=== PATIENT | male | born 1955 | race Caucasian/White ===

== ENCOUNTER 2021-07-19 10:08 | Day surgery (SDC) | payer OTHER ==
[2021-07-08 16:06] LABS: BASOPHILS # (AUTO) 0.1 X10'3 (0-0.2); BASOPHILS % (AUTO) 0.9 % (0-1); EOSINOPHILS # (AUTO) 0.3 X10'3 (0-0.9); EOSINOPHILS % (AUTO) 3.7 % (0-6); HEMATOCRIT 44.2 % (42.0-52.0); HEMOGLOBIN 15.1 g/dl (14.0-17.9); LYMPHOCYTES # (AUTO) 2.9 X10'3 (1.1-4.8); LYMPHOCYTES % (AUTO) 35.4 % (21-51); MEAN CORPUSCULAR HEMOGLOBIN 31.8 PG (27.0-31.0); MEAN CORPUSCULAR HGB CONC 34.2 g/dL (33.0-36.5); MEAN CORPUSCULAR VOLUME 92.9 FL (78-98); MEAN PLATELET VOLUME 8.4 FL (7.4-10.4); MONOCYTES # (AUTO) 0.7 X10'3 (0-0.9); NEUTROPHILS # (AUTO) 4.1 X10'3 (1.8-7.7); PLATELET COUNT 171 X10'3 (140-440); RED BLOOD COUNT 4.76 X10'6 (4.70-6.10); RED CELL DISTRIBUTION WIDTH 13.4 % (11.5-14.5); WHITE BLOOD COUNT 8.1 X10'3 (4.5-11.0)
[2021-07-08 16:15] LABS: ALBUMIN 3.7 G/DL (3.4-5.0); ANION GAP 8 (8-16); BLOOD UREA NITROGEN 28 MG/DL (7-18); BUN/CREATININE RATIO 25.7 (5.4-32.0); CALCIUM 8.7 MG/DL (8.5-10.1); CHLORIDE 103 MMOL/L (99-107); CREATININE 1.09 MG/DL (0.60-1.10); GLUCOSE 117 MG/DL (70-104); POTASSIUM 4.3 MMOL/L (3.5-5.1); SODIUM 140 MMOL/L (135-145); TOTAL CARBON DIOXIDE 29.2 MMOL/L (24-32); eGFR 68 ML/MIN
[2021-07-08 16:19] LABS: APTT 29 SECONDS (22-32)
[2021-07-19] VITALS (9 sets, daily range): BP systolic 90–117; BP diastolic 47–73
[~2021-07-19] VITALS: Ht 180.3 cm; Wt 151.5 kg
[2021-07-19] MEDS ORDERED: FURO40TA4 PO (10:31)
[2021-07-19] MEDS ORDERED: AMIO400T5 PO (10:31)
[2021-07-19] MEDS ORDERED: coQ10 PO (10:31)
[2021-07-19] MEDS ORDERED: LACT1CAP65 PO (10:31)
[2021-07-19] MEDS ORDERED: APIX5TAB3 PO (10:31)
[2021-07-19] MEDS ORDERED: POTA-207 PO (10:31)
[2021-07-19] MEDS ORDERED: GLUC100017 PO (10:31)
[2021-07-19] MEDS ORDERED: ATOR40TA72 PO (10:31)
[2021-07-19] MEDS ORDERED: TERA1CAP4 PO (10:31)
[2021-07-19] MEDS ORDERED: METO200T49 PO (10:31)
[2021-07-19] MEDS ORDERED: fentaNYL/PF 50MCG/1 ML 2ML syringe IV ONE (10:40)
[2021-07-19] MEDS ORDERED: MIDAZolam 1mg/ml 10ml vial IV ONE (10:40)
[2021-07-19] MEDS ORDERED: normal saline 1000ml 1,000 ML IV SCH (10:40)
== END 2021-07-19 14:47 | disposition home or self-care (01) ==
LOC: SSTAY O 10:08
PROVIDERS: ATTEND Internal Medicine Interventional Cardiology
DX: I48.91 Unspecified atrial fibrillation (principal); E11.9 Type 2 diabetes mellitus without complications; G47.33 Obstructive sleep apnea (adult) (pediatric); I42.9 Cardiomyopathy, unspecified; I50.9 Heart failure, unspecified; Z79.01 Long term (current) use of anticoagulants; Z79.899 Other long term (current) drug therapy; Z88.5 Allergy status to narcotic agent
CPT/HCPCS: 36415; 80048; 85025; 85610; 85730; 92960; 93005; 94760; 94799; J2250; J3010; J7030

== ENCOUNTER 2021-08-09 20:31 | Inpatient (IN) | payer OTHER ==
[~2021-08-09] VITALS: Ht 180.3 cm; Wt 147.7 kg
[~2021-08-09 20:31] MED LIST: AMIO400T5 PO; APIX5TAB3 PO; ATOR40TA72 PO; FURO40TA4 PO; GLUC100017 PO; LACT1CAP65 PO; METO200T49 PO; POTA-207 PO; TERA1CAP4 PO; coQ10 PO
[2021-08-09] MEDS ORDERED: acetaminophen 325mg tablet PO STA (21:24)
[2021-08-09] MEDS ORDERED: CefTRIAXone 2gm/D5W 50ml BAG 50 ML IV ONE (21:25)
[2021-08-09 21:57] LABS: BASOPHILS # (AUTO) 0.1 X10'3 (0-0.2); BASOPHILS % (AUTO) 0.6 % (0-1); EOSINOPHILS # (AUTO) 0.1 X10'3 (0-0.9); EOSINOPHILS % (AUTO) 0.5 % (0-6); HEMATOCRIT 43.6 % (42.0-52.0); HEMOGLOBIN 14.6 g/dl (14.0-17.9); LYMPHOCYTES # (AUTO) 1.4 X10'3 (1.1-4.8); LYMPHOCYTES % (AUTO) 8.7 % (21-51); MEAN CORPUSCULAR HEMOGLOBIN 31.1 PG (27.0-31.0); MEAN CORPUSCULAR HGB CONC 33.5 g/dL (33.0-36.5); MEAN PLATELET VOLUME 8.4 FL (7.4-10.4); MONOCYTES # (AUTO) 1.3 X10'3 (0-0.9); MONOCYTES % (AUTO) 8.1 % (2-12); NEUTROPHILS # (AUTO) 12.9 X10'3 (1.8-7.7); NEUTROPHILS % (AUTO) 82.1 % (42-75); PLATELET COUNT 157 X10'3 (140-440); RED BLOOD COUNT 4.69 X10'6 (4.70-6.10); RED CELL DISTRIBUTION WIDTH 14.3 % (11.5-14.5); WHITE BLOOD COUNT 15.7 X10'3 (4.5-11.0)
[2021-08-09 22:15] LABS: ALANINE AMINOTRANSFERASE 41 U/L (12-78); ALBUMIN 3.7 G/DL (3.4-5.0); ALKALINE PHOSPHATASE 88 IU/L (46-116); ANION GAP 7 (8-16); ASPARTATE AMINO TRANSFERASE 19 U/L (10-37); BILIRUBIN,TOTAL 1.3 MG/DL (0.1-1.0); BLOOD UREA NITROGEN 18 MG/DL (7-18); BUN/CREATININE RATIO 14.3 (5.4-32.0); CALCIUM 8.7 MG/DL (8.5-10.1); CHLORIDE 105 MMOL/L (99-107); CREATININE 1.26 MG/DL (0.60-1.10); GLUCOSE 135 MG/DL (70-104); SODIUM 140 MMOL/L (135-145); TOTAL CARBON DIOXIDE 27.7 MMOL/L (24-32); TOTAL PROTEIN 7.5 G/DL (6.4-8.2); eGFR 58 ML/MIN
[2021-08-09] MEDS ORDERED: magnesium 2GM in 50ml NS 50 ML IV PRN (23:35)
[2021-08-09] MEDS ORDERED: magnesium Cl slow-release 64mg tablet PO PRN (23:35)
[2021-08-09] MEDS ORDERED: normal saline 1000ml 1,000 ML IV SCH (23:35)
[2021-08-09] MEDS ORDERED: potassium CL 10mEq/100ml bag 100 ML IV PRN (23:35)
[2021-08-09] MEDS ORDERED: ondansetron/PF 4mg/2ml inj IV PRN (23:35)
[2021-08-09] MEDS ORDERED: acetaminophen 325mg tablet PO PRN (23:35)
[2021-08-09] MEDS ORDERED: potassium Cl 20 mEq SR tablet PO PRN ×2 (23:35)
[2021-08-09] MEDS ORDERED: ondansetron 4mg rapidly disintigrating tab PO PRN (23:35)
[2021-08-09] MEDS ORDERED: magnesium 4gm in 100ml NS 100 ML IV PRN (23:35)
[2021-08-09] MEDS ORDERED: HYDROcodone/acetaminophen 5mg/325mg tablet PO PRN (23:35)
[2021-08-09] MEDS ORDERED: vancomycin/NS 1 GM ADD-VANTAGE 250 ML IV ONE (23:55)
[2021-08-10 01:04] LABS: BASOPHILS # (AUTO) 0.1 X10'3 (0-0.2); BASOPHILS % (AUTO) 0.9 % (0-1); EOSINOPHILS % (AUTO) 0.2 % (0-6); HEMATOCRIT 40.8 % (42.0-52.0); HEMOGLOBIN 13.7 g/dl (14.0-17.9); LYMPHOCYTES # (AUTO) 1.3 X10'3 (1.1-4.8); LYMPHOCYTES % (AUTO) 8.9 % (21-51); MEAN CORPUSCULAR HGB CONC 33.6 g/dL (33.0-36.5); MEAN CORPUSCULAR VOLUME 92.2 FL (78-98); MEAN PLATELET VOLUME 8.4 FL (7.4-10.4); MONOCYTES # (AUTO) 0.9 X10'3 (0-0.9); MONOCYTES % (AUTO) 6.5 % (2-12); NEUTROPHILS # (AUTO) 11.9 X10'3 (1.8-7.7); NEUTROPHILS % (AUTO) 83.5 % (42-75); PLATELET COUNT 153 X10'3 (140-440); RED BLOOD COUNT 4.42 X10'6 (4.70-6.10); RED CELL DISTRIBUTION WIDTH 14.2 % (11.5-14.5); WHITE BLOOD COUNT 14.2 X10'3 (4.5-11.0)
[2021-08-10 01:09] LABS: CLARITY,URINE CLEAR (Clear); COLOR,URINE YELLOW (Yellow); GLUCOSE, URINE NEGATIVE (Neg); KETONES,URINE NEGATIVE (Neg); LEUKOCYTE ESTERASE ,URINE NEGATIVE (Neg); NITRITES, URINE NEGATIVE (Neg); OCCULT BLOOD,URINE TRACE-INTACT (Neg); PH,URINE 6.5 (4.8-8.0); PROTEIN,URINE 30 mg/dl (Neg)
[2021-08-10 01:14] LABS: UA COLLECTION TYPE NON-SPECIFIED
[2021-08-10 01:17] LABS: BACTERIA,URINE NONE SEEN /HPF (Neg); RBC,URINE 0-2 /HPF (0-2); SQUAMOUS EPITHELIAL CELL,UR FEW /LPF (FEW); WBC,URINE 0-4 /HPF (0-4)
[2021-08-10 01:19] LABS: ALBUMIN 3.4 G/DL (3.4-5.0); ANION GAP 8 (8-16); BLOOD UREA NITROGEN 17 MG/DL (7-18); CALCIUM 8.2 MG/DL (8.5-10.1); CHLORIDE 104 MMOL/L (99-107); CREATININE 1.21 MG/DL (0.60-1.10); GLUCOSE 128 MG/DL (70-104); MAGNESIUM 2.1 MG/DL (1.5-2.4); POTASSIUM 3.9 MMOL/L (3.5-5.1); SODIUM 141 MMOL/L (135-145); TOTAL CARBON DIOXIDE 28.8 MMOL/L (24-32); eGFR 60 ML/MIN
[2021-08-10 03:30] VITALS: BP 122/76
[2021-08-10 06:00] VITALS: BP 117/66
[2021-08-10] MEDS: VANCOMYCIN 1GM/200ML IVPB 200 ML IV SCH ×2 (07:51→19:24)
[2021-08-10] MEDS: K and/or MAG REPLACEMENT MC SCH ×2 (08:00→19:22)
[2021-08-10] MEDS ORDERED: furosemide 40mg/4ml inj IV ONE (10:20)
--- NOTE | 2021-08-10 10:24 | NUR ---
Noted pt with a BMI of 99.9 using documented wt of 325 kg though current wt isn't scaled. Pt with a documented wt of 151.5 kg at previous visit 07/19, though also not scaled. Clinical pharmacist informed of wt discrepancies in case pt is receiving wt based medications. Will continue to follow. Addendum: 08/10/21 at [address] Amended: Links added.
[2021-08-10 11:00] VITALS: BP 115/56
[2021-08-10] MEDS: amiodarone 200mg tablet PO SCH (12:18)
[2021-08-10 15:00] VITALS: BP 122/66
[2021-08-10 18:00] VITALS: BP 132/71
[2021-08-10] MEDS: furosemide 40mg/4ml inj IV SCH (19:23)
[2021-08-10] MEDS: apixaban 5mg tablet PO SCH (19:23)
[2021-08-10] MEDS ORDERED: amiodarone 200mg tablet PO SCH (20:00)
[2021-08-10] MEDS ORDERED: CefTRIAXone/D5W-Rocephin 1gm 50 ML IV SCH (21:00)
[2021-08-11 03:47] VITALS: BP 120/64
[2021-08-11] MEDS: K and/or MAG REPLACEMENT MC SCH (07:05)
[2021-08-11] MEDS ORDERED: VANCOMYCIN LEVEL IV ONE (07:30)
[2021-08-11] MEDS: apixaban 5mg tablet PO SCH (07:37)
[2021-08-11] MEDS: furosemide 40mg/4ml inj IV SCH (07:37)
[2021-08-11] MEDS: amiodarone 200mg tablet PO SCH (07:39)
[2021-08-11] MEDS ORDERED: atorvastatin 20mg tablet PO SCH (08:00)
[2021-08-11] MEDS ORDERED: non-formulary drug (Glucosamine Sulfate 2Kcl (Glucosamine) 1 TAB) PO SCH (08:00)
[2021-08-11] MEDS ORDERED: Terazosin 1mg capsule PO SCH (08:00)
[2021-08-11] MEDS ORDERED: lactobacillus rhamnosus 10,000 MMU CELLS/CAPSULE PO SCH (08:00)
[2021-08-11 08:18] LABS: BASOPHILS % (AUTO) 0.5 % (0-1); EOSINOPHILS # (AUTO) 0.2 X10'3 (0-0.9); EOSINOPHILS % (AUTO) 3.3 % (0-6); HEMATOCRIT 42.5 % (42.0-52.0); HEMOGLOBIN 14.3 g/dl (14.0-17.9); LYMPHOCYTES # (AUTO) 1.4 X10'3 (1.1-4.8); LYMPHOCYTES % (AUTO) 20.5 % (21-51); MEAN CORPUSCULAR HEMOGLOBIN 31.3 PG (27.0-31.0); MEAN CORPUSCULAR HGB CONC 33.6 g/dL (33.0-36.5); MEAN CORPUSCULAR VOLUME 93.2 FL (78-98); MEAN PLATELET VOLUME 8.7 FL (7.4-10.4); MONOCYTES # (AUTO) 0.8 X10'3 (0-0.9); MONOCYTES % (AUTO) 11.4 % (2-12); NEUTROPHILS # (AUTO) 4.4 X10'3 (1.8-7.7); NEUTROPHILS % (AUTO) 64.3 % (42-75); PLATELET COUNT 138 X10'3 (140-440); RED BLOOD COUNT 4.56 X10'6 (4.70-6.10); RED CELL DISTRIBUTION WIDTH 14.2 % (11.5-14.5); WHITE BLOOD COUNT 6.9 X10'3 (4.5-11.0)
[2021-08-11 08:34] LABS: ALBUMIN 3.1 G/DL (3.4-5.0); ANION GAP 8 (8-16); BLOOD UREA NITROGEN 16 MG/DL (7-18); BUN/CREATININE RATIO 19.8 (5.4-32.0); CALCIUM 7.7 MG/DL (8.5-10.1); CHLORIDE 104 MMOL/L (99-107); CREATININE 0.81 MG/DL (0.60-1.10); GLUCOSE 127 MG/DL (70-104); MAGNESIUM 2.2 MG/DL (1.5-2.4); POTASSIUM 3.6 MMOL/L (3.5-5.1); SODIUM 140 MMOL/L (135-145); TOTAL CARBON DIOXIDE 28.5 MMOL/L (24-32); VANCOMYCIN,TROUGH 5.1 UG/ML (6.0-14.0); eGFR > 90 ML/MIN
[2021-08-11] MEDS: VANCOMYCIN 1GM/200ML IVPB 200 ML IV SCH (08:54)
[2021-08-11] MEDS ORDERED: LEVO500T90 PO (11:18)
[2021-08-11] MEDS ORDERED: VANCOMYCIN 1GM/200ML IVPB 200 ML IV SCH (17:00)
== END 2021-08-11 12:41 | disposition home or self-care (01) | DRG 871 ==
LOC: ER 20:34 → ED HOLD 23:38 → EDBEDREQ 08-10 03:04 → PCU 3S 08-10 03:28
PROVIDERS: ADMIT Internal Medicine; ATTEND Internal Medicine
DX: A41.9 Sepsis, unspecified organism (principal); N17.0 Acute kidney failure with tubular necrosis; I48.20 Chronic atrial fibrillation, unspecified; L03.115 Cellulitis of right lower limb; E11.9 Type 2 diabetes mellitus without complications; E78.5 Hyperlipidemia, unspecified; E86.0 Dehydration; I11.0 Hypertensive heart disease with heart failure; I50.9 Heart failure, unspecified; I87.2 Venous insufficiency (chronic) (peripheral); N40.0 Benign prostatic hyperplasia without lower urinary tract symptoms; Z96.641 Presence of right artificial hip joint; Z96.653 Presence of artificial knee joint, bilateral; Z79.01 Long term (current) use of anticoagulants; Z79.899 Other long term (current) drug therapy
CPT/HCPCS: 36415; 71045; 80048; 80053; 80202; 81001; 83605; 83735; 83880; 84145; 85025; 87040; 87081; 93005; 96365; 99285; G0378; J0696; J1940; J3370; J7030

== ENCOUNTER 2022-04-11 12:10 | Day surgery (SDC) | payer OTHER ==
[2022-04-06 14:43] LABS: BASOPHILS % (AUTO) 0.4 % (0-1); EOSINOPHILS # (AUTO) 0.2 X10'3 (0-0.9); EOSINOPHILS % (AUTO) 2.3 % (0-6); HEMOGLOBIN 14.8 g/dl (14.0-17.9); LYMPHOCYTES # (AUTO) 2.6 X10'3 (1.1-4.8); LYMPHOCYTES % (AUTO) 26.2 % (21-51); MEAN CORPUSCULAR HEMOGLOBIN 32.2 PG (27.0-31.0); MEAN CORPUSCULAR HGB CONC 34.5 g/dL (33.0-36.5); MEAN CORPUSCULAR VOLUME 93.4 FL (78-98); MEAN PLATELET VOLUME 8.8 FL (7.4-10.4); MONOCYTES # (AUTO) 0.8 X10'3 (0-0.9); MONOCYTES % (AUTO) 7.6 % (2-12); NEUTROPHILS # (AUTO) 6.4 X10'3 (1.8-7.7); NEUTROPHILS % (AUTO) 63.5 % (42-75); PLATELET COUNT 162 X10'3 (140-440); RED CELL DISTRIBUTION WIDTH 13.6 % (11.5-14.5)
[2022-04-06 14:47] LABS: ALBUMIN 3.7 G/DL (3.4-5.0); ANION GAP 9 (8-16); BLOOD UREA NITROGEN 17 MG/DL (7-18); BUN/CREATININE RATIO 14.5 (5.4-32.0); CALCIUM 8.9 MG/DL (8.5-10.1); CHLORIDE 107 MMOL/L (99-107); CREATININE 1.17 MG/DL (0.60-1.10); GLUCOSE 181 MG/DL (70-104); POTASSIUM 3.6 MMOL/L (3.5-5.1); SODIUM 143 MMOL/L (135-145); TOTAL CARBON DIOXIDE 27.3 MMOL/L (24-32); eGFR 63 ML/MIN
[2022-04-06 14:52] LABS: APTT 31 SECONDS (22-32)
[2022-04-10 14:31] VITALS: BP 96/75
[2022-04-11] VITALS (8 sets, daily range): BP systolic 97–127; BP diastolic 47–76
[~2022-04-11] VITALS: Ht 180.3 cm; Wt 149.9 kg
[~2022-04-11 12:10] MED LIST changes: -AMIO400T5 PO; +LEVO-65 PO; -METO200T49 PO; -coQ10 PO
[2022-04-11] MEDS ORDERED: normal saline 1000ml 1,000 ML IV SCH (12:25)
[2022-04-11] MEDS ORDERED: fentaNYL/PF 50MCG/1 ML 2ML syringe IV ONE (12:25)
[2022-04-11] MEDS ORDERED: MIDAZolam 1mg/ml 10ml vial IV ONE (12:25)
[2022-04-11] MEDS ORDERED: METO-411 PO (12:32)
[2022-04-11] MEDS ORDERED: SOTA80TA73 PO (12:32)
[2022-04-11] MEDS ORDERED: SPIR25TA5 PO (12:32)
--- NOTE | 2022-04-11 14:31 | NUR ---
Scanner not working during cardioversion to scan IV versed and IV fentanyl administration. 2 mg IV versed and 25 mcg fentanyl given at 1431.
--- NOTE | 2022-04-11 14:36 | NUR ---
Scanner not working during cardioversion to scan IV versed and IV fentanyl administration. 1 mg IV versed and 25 mcg fentanyl given at 1436.
== END 2022-04-11 15:55 | disposition home or self-care (01) ==
LOC: SSTAY O 12:10
PROVIDERS: ATTEND Student in an Organized Health Care Education/Training Program
DX: I48.91 Unspecified atrial fibrillation (principal); G47.33 Obstructive sleep apnea (adult) (pediatric); E11.9 Type 2 diabetes mellitus without complications; I50.9 Heart failure, unspecified; Z98.890 Other specified postprocedural states; Z79.899 Other long term (current) drug therapy; Z88.8 Allergy status to other drugs, medicaments and biological substances
CPT/HCPCS: 36415; 80048; 85025; 85610; 85730; 92960; 93005; J2250; J3010; J7030; A4620

== ENCOUNTER 2022-04-25 08:57 | Day surgery (SDC) | payer OTHER ==
[~2022-04-25] VITALS: Ht 180.3 cm; Wt 150.0 kg
[~2022-04-25 08:57] MED LIST changes: -FURO40TA4 PO; -LACT1CAP65 PO; -LEVO-65 PO; +LIDOcaine Viscous 15ml cup ONE; +METO-411 PO; +MIDAZolam 1 MG/ML 5ML VIAL ONE; -POTA-207 PO; +SOTA80TA73 PO; +SPIR25TA5 PO; +diphenhydrAMINE 50 mg/ml inj ONE; +fentaNYL/PF 50MCG/1 ML 2ML syringe ONE
[2022-04-25 09:10] VITALS: BP 138/76
[2022-04-25] MEDS ORDERED: SPIR25TA5 PO (09:26)
[2022-04-25] MEDS ORDERED: ATORVASTATIN PO (09:27)
[2022-04-25] MEDS ORDERED: UBID100C16 PO (09:28)
[2022-04-25] MEDS ORDERED: TERAZOSIN PO (09:31)
[2022-04-25 10:11] VITALS: BP 138/70
[2022-04-25 10:21] VITALS: BP 114/78
[2022-04-25 10:31] VITALS: BP 135/62
== END 2022-04-25 10:58 | disposition home or self-care (01) ==
LOC: GI LAB 08:57
PROVIDERS: ATTEND Internal Medicine Gastroenterology
DX: Z12.11 Encounter for screening for malignant neoplasm of colon (principal); K29.50 Unspecified chronic gastritis without bleeding; K62.1 Rectal polyp; K21.00 Gastro-esophageal reflux disease with esophagitis, without bleeding; K25.9 Gastric ulcer, unspecified as acute or chronic, without hemorrhage or perforation; Z79.899 Other long term (current) drug therapy; Z98.890 Other specified postprocedural states
CPT/HCPCS: 43239; 45380; J2250; J3010; Z7512; 99152; 99153; A4620; J1200

== ENCOUNTER 2023-12-04 08:45 | Outpatient (CLI) | payer MEDICARE, OTHER ==
[2023-12-03 17:26] LABS: ALBUMIN 3.6 G/DL (3.4-5.0); ANION GAP 9 (8-16); BLOOD UREA NITROGEN 15 MG/DL (7-18); BUN/CREATININE RATIO 16.5 (10.0-20.0); CALCIUM 8.8 MG/DL (8.5-10.1); CHLORIDE 104 MMOL/L (99-107); CREATININE 0.91 MG/DL (0.60-1.10); GLUCOSE 88 MG/DL (70-104); POTASSIUM 3.7 MMOL/L (3.5-5.1); SODIUM 139 MMOL/L (135-145); TOTAL CARBON DIOXIDE 25.6 MMOL/L (24-32); eGFR 83 ML/MIN
[~2023-12-04 08:45] MED LIST changes: +AMIO200T27 PO; -ATOR40TA72 PO; +ATORVASTATIN PO; +FURO20TA4 PO; -LIDOcaine Viscous 15ml cup ONE; +METO-395 PO; -METO-411 PO; -MIDAZolam 1 MG/ML 5ML VIAL ONE; +NAPHAZOLINE EACHEYE; +PANT-47 PO; -SOTA80TA73 PO; -SPIR25TA5 PO; -TERA1CAP4 PO; +TERAZOSIN PO; +UBID100C16 PO; +[UNRECOGNIZED DRUG - OTHER] EACHEYE; -diphenhydrAMINE 50 mg/ml inj ONE; -fentaNYL/PF 50MCG/1 ML 2ML syringe ONE
[2023-12-04] MEDS ORDERED: iohexol 300mg/ml 100ml inj. ONE (09:05)
== END 2023-12-04 23:59 | disposition home or self-care (01) ==
LOC: RAD 08:45
PROVIDERS: ATTEND Internal Medicine
DX: R19.5 Other fecal abnormalities (principal); M16.11 Unilateral primary osteoarthritis, right hip; I70.0 Atherosclerosis of aorta; K65.8 Other peritonitis; Z96.641 Presence of right artificial hip joint; Z98.890 Other specified postprocedural states
CPT/HCPCS: 36415; 74177; 80048; J3490; Q9967

== ENCOUNTER 2024-03-08 19:45 | Emergency (ER) | payer MEDICARE, OTHER ==
[~2024-03-08] VITALS: Ht 180.3 cm; Wt 137.7 kg
[2024-03-08] MEDS: TETanus/Pertussis (Acell)/Diphther VAC/PF (Tdap-Adult) 0.5ml syringe IMVAC ONE (20:28)
[2024-03-08] MEDS: LIDOcaine 1% W/epiNEPHrine 1:100,000 20ml vial SQ ONE (20:29)
[2024-03-08] MEDS ORDERED: CEPH-585 PO (21:43)
[2024-03-08] MEDS ORDERED: HYDR-3965 PO (21:43)
[2024-03-08 22:04] VITALS: BP 115/63; PULSE 61; RESP 16; TEMP 98.4; O2SAT 95
== END 2024-03-08 22:07 | disposition home or self-care (01) ==
LOC: ER 19:45
DX: S81.812A Laceration without foreign body, left lower leg, initial encounter (principal); I48.91 Unspecified atrial fibrillation; E11.9 Type 2 diabetes mellitus without complications; Z88.8 Allergy status to other drugs, medicaments and biological substances; Z79.899 Other long term (current) drug therapy; X58.XXXA Exposure to other specified factors, initial encounter; Y93.89 Activity, other specified; Y92.89 Other specified places as the place of occurrence of the external cause; Y99.8 Other external cause status
CPT/HCPCS: 90715; 99283; A6223; A6258; A6402; A6446; G0008; J3490; J7030; 90471; A6449